=== PATIENT | female | born 1995 | race Two or more races ===

== ENCOUNTER 2020-11-23 22:56 | Emergency (ER) | payer OTHER ==
[~2020-11-23] VITALS: Ht 157.5 cm; Wt 68.0 kg
[2020-11-24] MEDS ORDERED: KETO10TA2 PO (04:22)
[2020-12-05] MEDS ORDERED: TYLENOL325 MG (15:32)
== END 2020-11-24 04:32 | disposition home or self-care (01) ==
LOC: ER 22:56
DX: S60.222A Contusion of left hand, initial encounter (principal); S60.221A Contusion of right hand, initial encounter; R60.0 Localized edema; Y04.2XXA Assault by strike against or bumped into by another person, initial encounter; Y93.89 Activity, other specified; Y92.488 Other paved roadways as the place of occurrence of the external cause; Y99.8 Other external cause status